=== PATIENT | female | born 1965 | race Caucasian/White ===

== ENCOUNTER → 2017-07-31 | Outpatient (REF) | payer OTHER | LOC: M SFHCLERA 11:15 | DX: J02.9 Acute pharyngitis, unspecified (principal) ==

== ENCOUNTER 2018-11-27 07:29 | Day surgery (SDC) | payer OTHER ==
[~2018-11-27] VITALS: Ht 167.6 cm; Wt 74.8 kg
[~2018-11-27 07:29] MED LIST: D3 H10002 PO; MELA3TAB49 PO; PROBCAP14 PO; PROBCAP4 PO; QC F0.52 PO; TRAZ-257 PO; VITA50005 PO
[2018-11-27] MEDS ORDERED: NS 1,000 ML IV ONE (08:00)
[2018-11-27] MEDS ORDERED: propofoL 200 MG/20 ML VIAL As Ordered ONE (08:58)
[2018-11-27] MEDS ORDERED: LIDOCAINE 2% INJ 100 MG/5 ML SDV (FOR ANES.) As Ordered ONE (08:58)
--- NOTE | 2018-11-27 09:20 | ROOR ---
Patient Name: Lana Gabriel Procedure Date: 11/27/2018 8:54 AM Date of : 1965 Age: 53 Room: [facility] Gender: Female Note Status: Finalized Procedure: Colonoscopy Indications: High risk colon cancer surveillance: Personal history of colonic polyps, Last colonoscopy: August 2015 Providers: Tyrone ETIENNE MD Referring MD: NELLI AIKEN MD Requesting Provider: Medicines: Monitored Anesthesia Care Complications: No immediate complications. Procedure: Pre-Anesthesia Assessment: - The heart rate, respiratory rate, oxygen saturations, blood pressure, adequacy of pulmonary ventilation, and response to care were monitored throughout the procedure. The Colonoscope was introduced through the anus and advanced to the terminal ileum, with identification of the appendiceal orifice and IC valve. The colonoscopy was performed without difficulty. The patient tolerated the procedure well. The quality of the bowel preparation was good. Findings: The perianal and digital rectal examinations were normal. A 4 mm polyp was found in the splenic flexure. The polyp was sessile. The polyp was removed with a cold snare. Resection and retrieval were complete. Mild sigmoid diverticulosis and small internal hemorrhoids. The exam was otherwise without abnormality on direct and retroflexion views. Impression: - One 4 mm polyp at the splenic flexure, removed with a cold snare. Resected and retrieved. - Mild sigmoid diverticulosis and small internal hemorrhoids. - The examination was otherwise normal on direct and retroflexion views. Recommendation: - Repeat colonoscopy in 5 years for surveillance. Tyrone Etienne MD Tyrone ETIENNE MD 11/27/2018 9:19:22 AM Electronically signed by Tyrone ETIENNE MD Number of Addenda: 0 Note Initiated On: 11/27/2018 8:54 AM Estimated Blood Loss: Estimated blood loss: none.
[2018-11-27 09:53] VITALS: BP 122/77
== END 2018-11-27 09:54 | disposition home or self-care (01) ==
LOC: M OPP 07:29
PROVIDERS: ATTEND Internal Medicine Gastroenterology
DX: Z12.11 Encounter for screening for malignant neoplasm of colon (principal); Z86.010 Personal history of colon polyps; D12.3 Benign neoplasm of transverse colon; K64.8 Other hemorrhoids; K57.30 Diverticulosis of large intestine without perforation or abscess without bleeding; Z79.899 Other long term (current) drug therapy

== ENCOUNTER → 2019-04-05 | Outpatient (CLI) | payer OTHER ==
[~2019-04-05] MED LIST changes: +GLUCAGON FOR INJ 1 MG VIAL (J1610) As Ordered ONE; +ISOVUE-370 76% 100ML VIAL (Q9967) As Ordered ONE; +TRAZ-163 PO; -TRAZ-257 PO; +VoLumen 0.1% SUSPENSION 450ML BOTTLE As Ordered ONE
--- NOTE | 2019-04-05 09:24 | REP ---
Clinical: Left lower quadrant pain. Technique: Axial contrast enhanced images using enterography technique including images obtained in arterial and portal venous phases of enhancement along with coronal and sagittal re-formations and MIP reconstructions. 100 ml Isovue 370 intravenous contrast material and low dose oral contrast agent used without complication. Findings: The enteric system demonstrates colonic and predominantly sigmoid diverticulosis without acute diverticulitis. There is evidence for small bowel resection and anastomoses in the right lower quadrant. A normal terminal ileum, cecum and appendix are identified. No further enteric abnormalities appreciated. Liver, spleen, pancreas, bilateral adrenal glands and kidneys are normal. Evidence for prior cholecystectomy. Pelvis demonstrates normal bladder and evidence of prior hysterectomy. No ascites. No free air. No adenopathy. Abdominal aorta and vasculature appears normal. Musculoskeletal structures demonstrate age-related degenerative changes and scoliosis. Lung bases are clear. Impression: 1. Colonic and sigmoid diverticulosis without acute diverticulitis. 2. Evidence for prior small bowel resection and anastomoses in the right lower abdomen. 3. No further enteric abnormality appreciated. 4. Evidence of prior cholecystectomy and hysterectomy. Electronically Signed by Stefano Durant MD 04/05/2019 09:15 A
== END ==
LOC: M RAD 07:23
PROVIDERS: ATTEND Physician Assistant Medical
DX: K57.30 Diverticulosis of large intestine without perforation or abscess without bleeding (principal); R10.32 Left lower quadrant pain; R93.3 Abnormal findings on diagnostic imaging of other parts of digestive tract
CPT/HCPCS: 74177; J1610; Q9967

== ENCOUNTER 2021-08-25 10:12 | Day surgery (SDC) | payer OTHER ==
[~2021-08-25] VITALS: Ht 167.6 cm; Wt 74.8 kg
[~2021-08-25 10:12] MED LIST changes: -GLUCAGON FOR INJ 1 MG VIAL (J1610) As Ordered ONE; -ISOVUE-370 76% 100ML VIAL (Q9967) As Ordered ONE; +LIDOCAINE 2% 100MG/5ML SDV (FOR ANES.) As Ordered ONE; +MELA10CA2 PO; +MV-M1TAB40 PO; +NS 1,000 ML IV ONE; +THERTAB52 PO; -TRAZ-163 PO; +TRAZ-257 PO; -VoLumen 0.1% SUSPENSION 450ML BOTTLE As Ordered ONE; +propofoL 200 MG/20 ML VIAL As Ordered ONE
[2021-08-25 12:00] VITALS: BP 126/77
== END 2021-08-25 12:09 | disposition home or self-care (01) ==
LOC: M OPP 10:12
PROVIDERS: ATTEND Internal Medicine Gastroenterology
DX: K63.5 Polyp of colon (principal); K57.30 Diverticulosis of large intestine without perforation or abscess without bleeding; K64.8 Other hemorrhoids; R93.3 Abnormal findings on diagnostic imaging of other parts of digestive tract; Z86.010 Personal history of colon polyps; Z87.19 Personal history of other diseases of the digestive system; Z79.899 Other long term (current) drug therapy

== ENCOUNTER → 2021-11-05 | Outpatient (CLI) | payer OTHER ==
[~2021-11-05] MED LIST changes: -LIDOCAINE 2% 100MG/5ML SDV (FOR ANES.) As Ordered ONE; -NS 1,000 ML IV ONE; -propofoL 200 MG/20 ML VIAL As Ordered ONE
== END ==
LOC: M WHC 08:46
PROVIDERS: ATTEND Student in an Organized Health Care Education/Training Program
DX: Z12.31 Encounter for screening mammogram for malignant neoplasm of breast (principal)

== ENCOUNTER → 2023-05-18 | Outpatient (CLI) | payer OTHER | LOC: M WHC 16:26 | PROVIDERS: ATTEND Nurse Practitioner Family | DX: Z12.31 Encounter for screening mammogram for malignant neoplasm of breast (principal) ==

== ENCOUNTER → 2024-03-05 | Outpatient (REF) | payer OTHER | LOC: M LAB REF 16:48 | PROVIDERS: ATTEND Nurse Practitioner Family | DX: R30.0 Dysuria (principal) ==

== ENCOUNTER → 2024-06-27 | Outpatient (CLI) | payer OTHER | LOC: M WHC 16:29 | PROVIDERS: ATTEND Nurse Practitioner Family | DX: Z12.31 Encounter for screening mammogram for malignant neoplasm of breast (principal) ==

== ENCOUNTER → 2025-02-21 | Outpatient (CLI) | payer OTHER ==
[~2025-02-21] MED LIST changes: +CVS10CAP8 PO; -MELA10CA2 PO
== END ==
LOC: M PLARAD 07:43
PROVIDERS: ATTEND Student in an Organized Health Care Education/Training Program
DX: R51.9 Headache, unspecified (principal)